=== PATIENT | female | born 1960 | race Caucasian/White ===

== ENCOUNTER 2017-02-20 06:01 | Day surgery (SDC) | payer OTHER ==
[2017-02-20] MEDS ORDERED: Ketamine HCl 50 MG/ML IJ ONE (06:02)
[2017-02-20] MEDS ORDERED: DIPRIVAN 200 MG/20 ML IV ONE (06:02)
[2017-02-20 07:00] VITALS: O2SAT 97
[2017-02-20] MEDS ORDERED: Lactated Ringers 1,000 ML IV SCH (07:00)
[2017-02-20 10:49] VITALS: BP 123/73; PULSE 69
--- NOTE | 2017-02-20 12:06 | OP ---
SURGERY DATE/TIME: 02/20/2017929 PREOPERATIVE DIAGNOSIS: Chronic diarrhea. POSTOPERATIVE DIAGNOSIS: Normal colon. PROCEDURE: Colonoscopy. SURGEON: Dr. Orantes. ANESTHESIA: MAC. Medications given by anesthesia department. HISTORY: The patient is a 56 year-old white female presenting now for colonoscopic evaluation. The patient reports that she has been having problems with diarrhea over the past roughly one year. The patient had colonoscopy six years ago which was normal. The patient reports that the bowel movements did not wake her from sleep. She has not had any blood in the stool. She does take Metformin for sugar and she reports three stools a day. The patient is felt the need to have endoscopic evaluation. She was appraised of the risks of the procedure including the risk of perforation, phlebitis, untoward reaction to medication, bleeding and missed lesions. The patient verbalized her understanding and desired to have the procedure performed. DESCRIPTION OF PROCEDURE: The patient was given the medications by the anesthesia department. She had continuous pulse oximetry, ECG monitoring, intermittent blood pressure monitoring and tidal CO2 monitoring during the examination. She was placed in the left lateral decubitus position. A digital rectal examination was performed and revealed normal anal sphincter tone and no masses. The flexible Olympus pediatric colonoscope was used to intubate the rectum. A view of the colon was developed sequentially to the cecum. Upon insertion and withdrawal, including a retroflex view in the rectum, no mucosal lesions were encountered. The scope was removed from the patient who tolerated the procedure well and was sent back to OP recovery in good condition. The prep was noted to be fair to good.
== END 2017-02-20 10:54 | disposition home or self-care (01) ==
LOC: SDC 06:01
PROVIDERS: ATTEND Family Medicine
PROC: 0DJD8ZZ Inspection of Lower Intestinal Tract, Via Natural or Artificial Opening Endoscopic (ICD-10-PCS; principal; 2017-02-20)
DX: K52.9 Noninfective gastroenteritis and colitis, unspecified (principal); E11.9 Type 2 diabetes mellitus without complications
CPT/HCPCS: 00740; J2704

== ENCOUNTER 2022-02-03 06:09 | Day surgery (SDC) | payer OTHER ==
[2022-02-03] MEDS ORDERED: Lactated Ringers 1,000 ML IV SCH (07:00)
[2022-02-03 08:51] VITALS: O2SAT 95
[2022-02-03 09:03] VITALS: BP 176/82; PULSE 74
--- NOTE | 2022-02-03 14:57 | OP ---
SURGERY DATE: 02/03/2022 SURGERY TIME: 800 PREOPERATIVE DIAGNOSIS: 1. EPIGASTRIC PAIN. POSTOPERATIVE DIAGNOSIS: 1. HIATAL HERNIA. 2. MILD GASTRITIS. PROCEDURE: 1. Esophagogastroduodenoscopy with cold forceps biopsy of the gastric antrum. SURGEON: Dr. Orantes. ANESTHESIA: MAC. Medication given by the Anesthesia Department. BRIEF HISTORY: The patient is a 61 y/o WF who presents now for endoscopic evaluation. She reports she has been having trouble with heartburn. She reports that she had been trying to take Dexilant which had worked somewhat better for her than her previous medication, but her insurance would not pay for it. The patient was felt to need to have endoscopic evaluation. She was appraised of the risks of the procedure including the risk of perforation, phlebitis, untoward reaction to medication, bleeding, or missed lesions. The patient verbalized his understanding and desired to have the procedure performed. DESCRIPTION OF PROCEDURE: The patient was given the medications by the Anesthesia Department. She had continuous pulse oximetry, ECG monitoring, and intermittent BP monitoring during the examination. She was placed in the left lateral decubitus position. A bite block was placed and the flexible Olympus gastroscope was used to intubate the oropharynx. A view of the larynx was obtained and was normal. The scope was easily introduced in the esophagus which was normal to the esophagogastric junction where there appeared to be presence of a hiatal hernia. The scope was introduced in the stomach where normal gastric rugal folds were seen and these distended nicely with the insufflation of air. The scope was passed along the greater curvature of the stomach to the antrum. The pylorus was encountered and intubated. The duodenum was inspected and found to be normal. The scope was withdrawn towards the stomach. A retroflex view was obtained of the lesser curvature, fundus, and cardia regions of the stomach and again, we noted the hiatal hernia. The scope was then redirected towards the gastric antrum where mild gastritis was seen. Biopsies were obtained to rule out the presence of H-pylori type organisms. The scope was then removed from the patient who tolerated the procedure well and was sent back to outpatient recovery in good condition.
== END 2022-02-03 09:05 | disposition home or self-care (01) ==
LOC: SDC 06:09
PROVIDERS: ATTEND Family Medicine
DX: K44.9 Diaphragmatic hernia without obstruction or gangrene (principal); R10.13 Epigastric pain; K29.70 Gastritis, unspecified, without bleeding
CPT/HCPCS: 82947